=== PATIENT | female | born 1955 | race Caucasian/White ===

== ENCOUNTER → 2016-06-06 | Outpatient (CLI) | payer MEDICAID ==
[~2016-06-06] MED LIST: ACET-62 PO; AMIT25TA9 PO; CEFD300C3 PO; CLOB15CR5 TOP; ELET40TA PO; FLUT9.9S NAS; LEVO175T9 PO; LISI10TA7 PO; LORA10TA62 PO; MELO-267 PO; METO25TA6 PO; OMEP40CA52 PO; ONDA4TAB10 PO; PRED20TA PO; SCOP1PAT TOP; TIZA4TAB4 PO
--- NOTE | 2016-06-06 15:50 | DI ---
Indication: ITS.REASON: M54.12 RADICULOPATHY; M54.2 MRI CERVICAL SPINE W/O CONTRAS: Comparison: Plain radiographs of the cervical spine 04/11/2016 Technique: T1 and T2-weighted images provided in longitudinal maxilla image planes. Findings: Patient showed no acute vertebral body fractures or significant malalignments. Degenerative changes are appreciated in the C5-6 and C6-7 disc spaces which are narrowed with mild to moderate hypertrophic changes. Mild degenerative changes seen at the C3-4 disc space. No focal cord lesions are noted. No abnormal signal within the vertebral bodies seen. Axial images C2-3 disc space showed no abnormality. C3-4 disc space shows mild disc space bulging and some associated hypertrophic bony arthropathy which is causing some neural foraminal narrowing on the right not seen on the left side. C4-5 disc space showed no significant abnormality. C5-6 shows just mild disc space bulging without significant spinal stenosis or neural foraminal narrowing. C6-7 shows just mild broad-based disc bulging without marked hypertrophic changes or significant stenosis. Impression: 1. Patient showed the most significant findings to the right neural foraminal recess at C3-4. No significant spinal stenosis noted but there is asymmetric neural foraminal narrowing. 2. Mild degenerative changes and broad-based disc bulging at C5-6 and C6-7 levels without significant spinal stenosis or neural foraminal narrowing. There is just slightly more effect on the canal diameter with effacement of epidural fat at C5-6. .
== END ==
LOC: IMA 13:44
PROVIDERS: ATTEND Physician Assistant
DX: M50.822 Other cervical disc disorders at C5-C6 level (principal); M50.823 Other cervical disc disorders at C6-C7 level; M54.12 Radiculopathy, cervical region

== ENCOUNTER 2016-07-06 21:57 | Emergency (ER) | payer MEDICAID ==
[~2016-07-06] VITALS: Ht 166.4 cm; Wt 99.3 kg
--- OUTSIDE RECORDS SUMMARY | 2016-07-06 22:01 | XMS REPORT | Continuity of Care Document ---
Author Author [facility] Organization [facility] Address Unknown Phone Unavailable Care Team Providers [employer] Analyst Name Role Phone RUEL PEREZ MD Primary Care Physician [phone] Insurance Providers Payer Name Policy Number Subscriber Name Relationship [facility] [id number] Stephanie Molina 20 Self Advance Directives Directive Response Recorded Date/Time Ordered Resuscitation Status Full Code 12/23/13 12:17pm Resuscitation Documents on File No 12/23/13 11:54am Chief Complaint and Reason for Visit Chief Complaint Abdominal Pain Reason for Visit Abdominal abscess Abdominal pain Problems Medical Problems Problem Onset Date Status Abdominal pain Unknown Active Abdominal fluid collection Unknown Active Wound dehiscence Unknown Active Hypothyroid Unknown Active History of Clostridium difficile colitis Unknown Active History of MRSA infection Unknown Resolved Anemia Unknown Active Seroma, postoperative Unknown Active 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 Hepatitis C carrier Unknown Active Dehydration Unknown Active Abdominal pain Unknown Active Hypertension Unknown Active Protein calorie malnutrition Unknown Active Obesity (BMI 30-39.9) Unknown Active Dyslipidemia Unknown Active GERD (gastroesophageal reflux disease) Unknown Active Stage III chronic kidney disease Unknown Active Depression Unknown Active Overactive bladder Unknown Active Allergic rhinitis Unknown Active Abdominal abscess Unknown Active Medications Medication Dose Route Sig Days/Qty Instructions Order Date Discontinued Date Status Celecoxib 200 Mg PO DAILY 10/29/09 07/24/11 Discontinued Cyclobenzaprine Hcl 10 Mg PO Q8HPRN 10/29/09 12/18/11 Discontinued Gabapentin 600 Mg PO THREE TIMES A DAY 10/29/09 07/24/11 Discontinued Hydrocodone Bit/Acetaminophen 1 Tab PO Q4HPRN 10/29/09 07/24/11 Discontinued Labetalol Hcl 100 Mg PO TWICE A DAY 10/29/09 12/27/11 Discontinued Levothyroxine Sodium 1 Tab PO DAILY 10/29/09 01/15/12 Discontinued Lisinopril 20 Mg PO DAILY 10/29/09 01/15/12 Discontinued Estrogens,Conjugated 0.625 Mg PO DAILY 10/29/09 12/18/11 Discontinued Albuterol Sulfate 2 Puff INH NEEDED 10/29/09 12/27/11 Discontinued Tramadol Hcl 50 Mg PO THREE TIMES A DAY 10/29/09 07/24/11 Discontinued Estrogens,Conjugated 0.625 Mg PO DAILY 5 DAYS ON 2 DAYS OFF 12/18/11 12/27/11 Discontinued [Normodyne] 100 Mg TWICE A DAY 12/27/11 02/03/12 Discontinued Nystatin 1 Each MC TWICE A DAY 12/29/11 01/15/12 Discontinued Ibuprofen 100 Mg PO NEEDED 12/29/11 01/15/12 Discontinued Acetaminophen 325-650 Mg PO EVERY 5 HOURS PRN DISCOMFORT 7 Days Active Levothyroxine Sodium 175 Mcg PO BEFORE BREAKFAST 30 Days 12/03/13 Active Metronidazole 500 Mg PO TWICE A DAY 60 Qty 12/17/13 Active Omeprazole 40 Mg PO DAILY 30 Qty 12/17/13 Active Loratadine DAILY 12/27/13 Active Social History Social History Problem Response Recorded Date/Time Smoking Status Never smoker 12/27/2013 1:40pm Chewing Tobacco Status No 02/03/2012 3:21pm Hx Substance Use N IN THE PAST - SMOKED [place] 12/27/2013 1:40pm Hx Alcohol Use No 12/27/2013 1:40pm Has the pt used tobacco in the last 12 months No 12/27/2013 1:40pm Query Response Start Date Stop Date Smoking Status Never smoker Hospital Discharge Instructions Instructions: Care Instructions: Reason for Hospitalization: ABDOMINAL ABSCESS I was in the hospital because (patient own words): my belly is popping out Discharge Diet: REGULAR Discharge Activity: Up as tolerated Follow Up Appointments: Follow up with Dr. Jenkins in wound clinic when dismissed from AM. Patient Instructions: n/a Wound/Incision Care: Wound Vac per [facility] Durable Medical Equipment: n/a Notify Physician If: Worsening abdominal pain, fevers General Information: n/a Condition at time of discharge: Good Good or excessive foul smelling drainage. 3. If the office is closed, call [facility] at [phone] and have your Surgeon paged. Condition at time of discharge: Good Plan of Care Discharge Date 12/03/13 2:35pm Disposition 02 TO [facility] Condition at Discharge Stable Instructions/Education Provided DI for Wound Infection DI with Wound Drains Prescriptions See Medications Section Referrals RUEL PEREZ MD Functional Status Query Response Date Recorded Physical Hygiene Self December 03, 2013 2:06pm Physical Hygiene Self December 03, 2013 2:06pm Allergies, Adverse Reactions, Alerts Allergen Type Severity Reaction Status Last Updated Penicillin Allergy Unknown Active 11/26/13 Aspirin Allergy Unknown Active 11/26/13 adhesive tape Allergy Mild RASH Active 11/26/13 Milk Allergy Unknown Active 11/26/13 Immunizations Name Given Type Hx Influenza Vaccination Y FALL 2012 Historical Hx Pneumococcal Vaccination 2009 Historical Hx Influenza Vaccination Y FALL 2012 Historical Vital Signs Acute Vital Signs Vital Response Date/Time Temperature (Fahrenheit) 97.4 deg F (96.8 - 99.1) Temperature (Calculated Celsius) 36.91482 degrees C (36.0 - 37.3) Temperature Source Temporal Pulse Rate (adult) 88 bpm (60 - 100) Respiratory Rate 17 breaths/min (10 - 20) O2 Sat by Pulse Oximetry 97 % (90 - 100) Oxygen Delivery Method Room Air Blood Pressure 137/96 mm Hg Blood Pressure Source Automatic Cuff Height 5 ft 5.5 in Weight 212 lb Body Mass Index 34.0 kg/m^2 Results Test Source Date Result Interp. Ref. Range Comments Activated Partial Thromboplast Time December 27, 2013 1:43pm 18.5 SEC L 24-36 Prothromb Time International Ratio December 27, 2013 1:43pm 0.95 N 0.81- 1.09 THERAPUTIC RANGE=2.00-3.00 FOR ANTI-THROMBOSIS THERAPUTIC RANGE=2.50- 3.50 FOR IMPLANTED VALVE Alanine Aminotransferase (ALT/SGPT) December 27, 2013 1:43pm 23 U/L N 9- 52 Albumin December 27, 2013 1:43pm 3.0 G/DL L 3.5-5.0 Albumin/Globulin Ratio December 27, 2013 1:43pm 0.8 RATIO L 1.1-2.2 Alkaline Phosphatase December 27, 2013 1:43pm 146 U/L H 38-126 Amylase Level November 26, 2013 4:12pm 44 U/L N 30-110 Anion Gap December 27, 2013 1:43pm 8 MEQ/L N 5-15 Anisocytosis November 29, 2013 4:49am 2+ - Aspartate Amino Transf (AST/SGOT) December 27, 2013 1:43pm 22 U/L N 14- 36 BUN/Creatinine Ratio December 27, 2013 1:43pm 8 RATIO N 6-26 Band Neutrophils # December 27, 2013 1:43pm 0.1 T/MM3 - COMMENT SCU WILL CALL Band Neutrophils % December 27, 2013 1:43pm 1.0 % N 0-6 COMMENT SCU WILL CALL Basophils # (Auto) December 03, 2013 4:59am 0.0 T/MM3 N 0-0.2 Basophils # (Manual) January 08, 2012 5:30am 0.1 T/MM3 N 0-0.2 Basophils % (Manual) January 08, 2012 5:30am 1.0 % N 0-2 Basophils (%) (Auto) December 03, 2013 4:59am 0.4 % N 0-2 Blood Smear Pathologist Review November 30, 2013 5:42am Sent for review - COMMENT Add on - blood already in lab Blood Urea Nitrogen December 27, 2013 1:43pm 7.0 MG/DL N 7-17 Calcium Level December 27, 2013 1:43pm 8.9 MG/DL N 8.4-10.2 Calculated Osmolality December 27, 2013 1:43pm 267 MOSM/KG N 261-280 Carbon Dioxide Level December 27, 2013 1:43pm 24 MEQ/L N 22-30 Chemistry Specimen Hemolysis December 27, 2013 1:43pm < 15 0-25 0-25: No Hemolysis.26-70: Slight Hemolysis - can falsely elevate K and Urine Protein. 71-285: Moderate Hemolysis - can falsely elevate K, Troponin I, CA 19-9, PTH, CSF GLucose, and Urine Protein, and can falsely decrease Phenytoin. 286-999: Gross Hemolysis - can falsely elevate K, Troponin I, CA 19-9, PTH, CSF Glucose, and Urine Protine, and can falsely decrease Phenytoin. Recommend specimen recollection. Chloride Level December 27, 2013 1:43pm 108 MEQ/L H 98-107 Clostridium difficile Toxin (PCR) November 08, 2009 12:03pm Negative - If Toxin A is clinically indicated, treat accordingly. Conjugated Bilirubin January 15, 2012 1:10am 0.00 MG/DL N 0.00-0.30 Creatinine December 27, 2013 1:43pm 0.9 MG/DL N 0.7-1.2 D-Dimer November 06, 2009 4:33am 765 NG/ML H 0-224 <224 NG/ML= PRESUMPTIVE NEGATIVE FOR PE OR DVT>224 NG/ML=ADDITIONAL EVALUATION FOR PE OR DVT RECOMMENDED Differential Total Cells Counted November 03, 2009 5:15am 100 % - Eosinophils # (Auto) December 03, 2013 4:59am 0.2 T/MM3 N 0-0.5 Eosinophils # (Manual) December 27, 2013 1:43pm 0.2 T/MM3 N 0-0.5 COMMENT SCU WILL CALL Eosinophils % (Manual) December 27, 2013 1:43pm 2.0 % N 0-4 COMMENT SCU WILL CALL Eosinophils (%) (Auto) December 03, 2013 4:59am 2.9 % N 0-4 Erythrocyte Sedimentation Rate November 29, 2013 3:50pm 55 MM/HR H 0- 20 Ferritin November 03, 2009 5:15am 233 NG/ML N 11-264 Folate November 26, 2013 4:15am 3.7 NG/ML N 2.76-20 NORMAL ADULT RANGE : 2.76->20 ng/mL Free Thyroxine November 27, 2013 4:15am 0.80 NG/DL N 0.78-2.19 COMMENT BLOOD IN LAB Free Triiodothyronine November 27, 2013 4:15am 2.55 PG/ML L 2.77-5.27 COMMENT BLOOD IN LAB Globulin December 27, 2013 1:43pm 3.7 G/DL H 2.4-3.6 Glomerular Filtration Rate Calc December 27, 2013 1:43pm 65 - Glucometer February 03, 2012 6:21pm 102 mg/dL N 65-110 Glucose Level December 27, 2013 1:43pm 103 MG/DL N 65-110 Hematocrit December 27, 2013 1:43pm 32.3 % L 36-46 COMMENT SCU WILL CALL Hemoglobin December 27, 2013 1:43pm 9.4 GM/DL L 12-16 COMMENT SCU WILL CALL Icterus Index December 27, 2013 1:43pm < 2 0-7 Immature Granulocyte # (Auto) December 03, 2013 4:59am 0.02 T/MM3 N 0.00-0.03 Immature Granulocyte % (Auto) December 03, 2013 4:59am 0.3 % N 0.0-0.5 Iron Level November 26, 2013 4:15am 28 UG/DL L 37-170 COMMENT On blood in labCOMMENT on blood in lab Lab Scanned Report November 28, 2013 12:36pm BLOOD BANK DOCUMENTATION [id number] - Lipase November 26, 2013 4:12pm 55 U/L N 23-300 Lymphocytes # (Auto) December 03, 2013 4:59am 3.0 T/MM3 N 1-4.8 Lymphocytes # (Manual) December 27, 2013 1:43pm 3.6 T/MM3 N 1-4.8 COMMENT SCU WILL CALL Lymphocytes % (Manual) December 27, 2013 1:43pm 45.0 % N 23-45 COMMENT SCU WILL CALL Lymphocytes (%) (Auto) December 03, 2013 4:59am 39.3 % N 23-45 Magnesium Level November 30, 2013 5:42am 2.0 MG/DL DN 1.6-2.3 Mean Corpuscular Hemoglobin December 27, 2013 1:43pm 25.3 UUG L 26-34 COMMENT SCU WILL CALL Mean Corpuscular Hemoglobin Concent December 27, 2013 1:43pm 29.1 GM/DL L 31-37 COMMENT SCU WILL CALL Mean Corpuscular Volume December 27, 2013 1:43pm 86.8 UM3 N 80-100 COMMENT SCU WILL CALL Mean Platelet Volume December 27, 2013 1:43pm 9.6 UM3 N 9.4-12.4 COMMENT SCU WILL CALL Metamyelocytes # January 06, 2012 4:30am 0.2 T/MM3 - Metamyelocytes % January 06, 2012 4:30am 2.0 % H 0-0 Monocytes # (Auto) December 03, 2013 4:59am 0.9 T/MM3 H 0-0.8 Monocytes # (Manual) December 27, 2013 1:43pm 0.2 T/MM3 N 0-0.8 COMMENT SCU WILL CALL Monocytes % (Manual) December 27, 2013 1:43pm 2.0 % N 0-9.0 COMMENT SCU WILL CALL Monocytes (%) (Auto) December 03, 2013 4:59am 12.2 % H 0-9.0 Myelocytes # January 08, 2012 5:30am 0.3 T/MM3 - Myelocytes % January 08, 2012 5:30am 2.0 % H 0-0 Neutrophils # (Auto) December 03, 2013 4:59am 3.4 T/MM3 N 1.8-7.7 Neutrophils # (Manual) December 27, 2013 1:43pm 4.1 T/MM3 N 1.8-7.7 COMMENT SCU WILL CALL Neutrophils % (Manual) December 27, 2013 1:43pm 50.0 % N 33-66 COMMENT SCU WILL CALL Neutrophils (%) (Auto) December 03, 2013 4:59am 44.9 % N 33-66 Percent Iron Saturation November 26, 2013 4:15am 15 % N 9-55 COMMENT On blood in labCOMMENT on blood in lab Phosphorus Level January 01, 2012 5:50am 2.5 MG/DL N 2.5-4.5 Platelet Count December 27, 2013 1:43pm 438 T/MM3 H 130-400 COMMENT SCU WILL CALL Potassium Level December 27, 2013 1:43pm 3.6 MEQ/L N 3.6-5 Prealbumin November 26, 2013 4:12pm 7.3 MG/DL L 17.6-36.0 COMMENT may use blood in lab Procalcitonin November 26, 2013 6:10pm < 0.05 NG/ML - PCT </=0.5 ng/ mL - sepsis not likely;PCT >0.5 and </=2 ng/mL - sepsis possible; PCT >2 ng/mL - sepsis likely; PCT >/=10 ng/mL - systemic inflammatory response - sepsis or septic shock highly indicated. RDW Standard Deviation December 27, 2013 1:43pm 62.2 FL H 36.9-50.2 COMMENT SCU WILL CALL Random Vancomycin Level January 24, 2012 1:55pm 23.30 UG/ML N 0-40 Reactive Lymphocytes # November 29, 2013 4:49am 0.6 T/MM3 H 0-0 Reactive Lymphocytes % November 29, 2013 4:49am 5.0 % H 0-0 Red Blood Count December 27, 2013 1:43pm 3.72 M/MM3 L 4.00-5.20 COMMENT SCU WILL CALL Sodium Level December 27, 2013 1:43pm 140 MEQ/L N 134-144 Thyroid Stimulating Hormone (TSH) November 26, 2013 4:12pm 15.80 MIU/L H 0.47-4.68 COMMENT may use blood in lab Total Bilirubin December 27, 2013 1:43pm 0.40 MG/DL N 0.20-1.30 Total Iron Binding Capacity November 26, 2013 4:15am 181 UG/DL L 261- 497 COMMENT On blood in labCOMMENT on blood in lab Total Protein December 27, 2013 1:43pm 6.7 G/DL N 6.3-8.2 Turbidity December 27, 2013 1:43pm < 20 0-20 Unconjugated Bilirubin January 15, 2012 1:10am 0.10 MG/DL N 0.00-1.10 Urine Bacteria November 26, 2013 8:43pm 2+ H - Has specimen been collected/obtained? Y Urine Bilirubin November 26, 2013 8:43pm Negative - Has specimen been collected/obtained? Y Urine Blood November 26, 2013 8:43pm 1+ H - Has specimen been collected/obtained? Y Urine Collection Type November 26, 2013 8:43pm Voided-not cc-midstr - Has specimen been collected/obtained? Y Urine Color November 26, 2013 8:43pm Yellow - Has specimen been collected/obtained? Y Urine Culture Indicated November 26, 2013 8:43pm Cult reflexed &setup - Has specimen been collected/obtained? Y Urine Glucose (UA) November 26, 2013 8:43pm Negative - Has specimen been collected/obtained? Y Urine Ketones November 26, 2013 8:43pm Negative - Has specimen been collected/obtained? Y Urine Leukocyte Esterase November 26, 2013 8:43pm Negative - Has specimen been collected/obtained? Y Urine Mucus July 25, 2011 11:15am Present - Has specimen been collected/obtained? Y Urine Nitrite November 26, 2013 8:43pm Positive H - Has specimen been collected/obtained? Y Urine Protein November 26, 2013 8:43pm Negative - Has specimen been collected/obtained? Y Urine RBC November 26, 2013 8:43pm 10-20 /HPF H - Has specimen been collected/obtained? Y Urine Specific [place] November 26, 2013 8:43pm 1.010 L - Has specimen been collected/obtained? Y Urine Squamous Epithelial Cells November 26, 2013 8:43pm 5-10 - Has specimen been collected/obtained? Y Urine Turbidity November 26, 2013 8:43pm Sl cloudy - Has specimen been collected/obtained? Y Urine Urobilinogen November 26, 2013 8:43pm 0.2 EU/DL - Has specimen been collected/obtained? Y Urine WBC November 26, 2013 8:43pm Trace /HPF - Has specimen been collected/obtained? Y Urine WBC Clumps July 25, 2011 11:15am Few - Has specimen been collected/obtained? Y Urine Yeast December 18, 2011 1:40pm Trace H - Has specimen been collected/obtained? Y Urine pH November 26, 2013 8:43pm 7.5 - Has specimen been collected/ obtained? Y Vancomycin Level Trough December 02, 2013 6:06am 25.65 UG/ML H 15-20 COMMENT PER VANCO PROTOCOL Vitamin B12 Level November 26, 2013 4:12pm 377 PG/ML N 239-931 COMMENT may use blood in lab White Blood Count December 27, 2013 1:43pm 8.1 T/MM3 N 4.5-11.0 COMMENT SCU WILL CALL Blood Culture Blood January 15, 2012 1:10am NO GROWTH AFTER 5 DAYS Gram Stain Drainage-Surgical Wound November 26, 2013 3:47pm Gram Stain Rectum December 18, 2011 12:50pm Gram Stain Sputum-Induced Sputum November 03, 2009 9:15am Gram Stain Abscess November 27, 2013 11:11am Urine Culture Urine, Voided-Not Cc-Midstream November 26, 2013 9:02pm Proteus Mirabilis Name: STEPHANIE MOLINA Unit #: [id number] : 1955 Sex: F Loc / Svc: MED DOS: 11/26/13 Signed Report #: [id number] DIAGNOSTIC IMAGING REPORT TYPE OF EXAM: CHEST POST PROCEDURE 1 VIEW Dictated By: GEOFF HOLBROOK MD INDICATION: ITS.REASON: post central line placement CHEST POST PROCEDURE 1 VIEW: Comparison: January 21, 2012 Findings: New right internal jugular central venous catheter in place with the tip projecting over the expected cavoatrial junction. No pneumothorax. The lungs are clear. No effusion. Heart size, pulmonary vascularity and mediastinal contours are normal. Old right fourth and fifth lateral rib fractures, new since 2011. Impression: New right central line as above. . Procedures Procedure Status Date Provider(s) MUSCULOSKELETAL SURGERY completed 11/26/13 MARISSA JENKINS MD, FACS, CWS ABDOMEN SURGERY PROCEDURE completed 11/26/13 MARISSA JENKINS MD, FACS, CWS INSERT NON-TUNNEL CV CATH completed 11/26/13 MARISSA JENKINS MD, FACS, CWS RADIOGRAPHIC PROCEDURE completed 11/26/13 MARISSA JENKINS MD, FACS, CWS Wound closure completed 12/27/13 MARISSA JENKINS MD, FACS, CWS Encounters Encounter Location Date/Time Registered [facility] 12/20/13 1:17pm Registered [facility] 12/17/13 8:35am Registered Clinic [facility] 12/15/13 1:42pm Registered [facility] 12/13/13 9:30am Discharged Inpatient [facility] 11/26/13 5:45pm
--- OUTSIDE RECORDS SUMMARY | 2016-07-06 22:01 | XMS REPORT | Continuity of Care Document ---
Author Author [facility] Organization [facility] Address Unknown Phone Unavailable Allergies Medications Problems Procedures Results Encounters ACCT No. Visit Date/Time Discharge Status Pt. Type Provider Facility Loc./Unit Complaint [id number] 01/18/2013 15:11:00 01/18/2013 23 :59:59 CLS Outpatient
--- OUTSIDE RECORDS SUMMARY | 2016-07-06 22:02 | XMS REPORT | Referral Summary ---
Author Author [facility], [facility] Medicine Organization [facility] Address Unknown Phone Unavailable Care Team Providers Care Scorekeeper Name Role Phone Kris Ramos Primary Care Physician [phone] Encounter VC Date(s): 01/31/16 - 01/31/16 [facility] [address] [place] [id number] Discharge Diagnosis: hx of rectocele, cystocele Discharge Diagnosis: Morbid obesity (disorder) Discharge Diagnosis: H/O: substance abuse Discharge Diagnosis: CHRONIC HEPATITIS C WITHOUT MENTION OF HEPATIC COMA Discharge Diagnosis: Cervical cancer Discharge Diagnosis: History of kidney stones Discharge Diagnosis: Gastroesophageal reflux disease (disorder) Discharge Diagnosis: Hx of migraine headaches Discharge Disposition: 01-Home or Self Care Attending Physician: Oh Ramos MD Admitting Physician: Oh Ramos MD Vital Signs Most recent to 1 oldest [Reference Range]: Temperature Tympanic 35.8 degC [36.6-38.1 degC] *LOW* (01/31/16 10:56 AM) Peripheral Pulse 77 bpm Rate [60-100 bpm] (01/31/16 10:56 AM) Respiratory Rate 16 br/min [14-20 br/min] (01/31/16 10:56 AM) Blood Pressure 150/80 mmHg [90-140/60-90 mmHg] *HI* (01/31/16 10:56 AM) SpO2 96 % (01/31/16 10:56 AM) Problem List Condition Effective Dates Status Health Status Informant Abdominal Active pain(Confirmed) Acute Active pain(Confirmed) Allergies(Confirmed) Active Anemia Active (disorder)(Confirmed ) Asthma(Confirmed) Active Asthma without Active status asthmaticus (disorder)(Confirmed ) At risk for Active infection(Confirmed) 1 At risk of pressure Active sore(Confirmed) bacteremia, sepsis 2005 Active from infected port a cath(Confirmed)2 Bladder muscle Active dysfunction - overactive (disorder)(Confirmed ) Bronchitis Active (disorder)(Confirmed ) Carpal tunnel Active syndrome (disorder)(Confirmed ) Cervical spondylosis Active without myelopathy (disorder)(Confirmed ) Chronic kidney Active disease stage 3 (disorder)(Confirmed ) COPD(Confirmed) Active Chronic kidney Active disease stage III(Confirmed) Chronic sinusitis Active (disorder)(Confirmed ) CHRONIC HEPATITIS C Active WITHOUT MENTION OF HEPATIC COMA(Confirmed) Chronic Active UTI(Confirmed)3 Constipation Active (disorder)(Confirmed ) Degeneration of Active cervical intervertebral disc (disorder)(Confirmed ) Generalized Active osteoarthritis (disorder)(Confirmed ) Depression(Confirmed Active ) Diarrhea Active (finding)(Confirmed) Necrotic SQ tissues Active in fascia (abd wound)(Confirmed) Skin Active Conditions(Confirmed ) Angina(Confirmed) Active Displacement of Active cervical intervertebral disc without myelopathy (disorder)(Confirmed ) Substance Active dependence(Confirmed )4 Dysphagia Active (disorder)(Confirmed ) Eczema(Confirmed) Active Essential Active hypertension (disorder)(Confirmed ) hx of rectocele, Active cystocele(Confirmed) Female urinary Active stress incontinence (finding)(Confirmed) Fibromyalgia(Confirm Active ed) Fluid volume Active deficit(Confirmed)5 Gastroesophageal Active reflux disease (disorder)(Confirmed ) Goiter Active (disorder)(Confirmed ) Headache Active (finding)(Confirmed) Headache - Active Migraine(Confirmed)6 Hemorrhage of rectum Active and anus (disorder)(Confirmed ) Herpes simplex virus 2009 Active (HSV-1)(Confirmed) Herpes simplex Active without complication (disorder)(Confirmed ) History of kidney Active stones(Confirmed) H/O: substance Active abuse(Confirmed) High Active Cholesterol(Confirme d)7 Hyperlipidemia(Confi Active rmed) Hypertension(Confirm Active ed) Hypokalemia (present 2011 Active on hosp admission)(Confirmed ) Hypothyroidism Active (disorder)(Confirmed ) Impaired skin Active integrity(Confirmed) 8 Hernia, Active incisional(Confirmed ) Incontinence - Active stress(Confirmed)9 Incontinence - Active urge(Confirmed)10 Hepatitis/Jaundice(C 2002 Active onfirmed)11 Injury of head Active (disorder)(Confirmed ) Insomnia Active (disorder)(Confirmed ) Irregular heart Active rhythm(Confirmed) Irritable bowel Active syndrome (disorder)(Confirmed ) Cervical 2001 Active cancer(Confirmed) Morbid obesity Active (disorder)(Confirmed ) Nausea vomiting and Active diarrhea(Confirmed) Neck pain Active (finding)(Confirmed) Osteoarthritis(Confi Active rmed) Overweight Active (finding)(Confirmed) Peptic ulcer without Active hemorrhage, without perforation AND without obstruction (disorder)(Confirmed ) Pneumonia Active (disorder)(Confirmed ) Pure Active hypercholesterolemia (disorder)(Confirmed ) Rectal prolapse Active (disorder)(Confirmed ) Rheumatic fever Active without heart involvement (disorder)(Confirmed ) Seizures(Confirmed)1 Active 2 Seizure Active disorder(Confirmed) Sexually Transmitted 2008 Active Disease(Confirmed)13 Sinus Active Infections(Confirmed )14 Sleep apnea Active (disorder)(Confirmed ) Tension-type Active headache (disorder)(Confirmed ) Ulcers(Confirmed)15 Active Urge incontinence of Active urine (finding)(Confirmed) Urinary tract Active infectious disease (disorder)(Confirmed ) Chicken Active Pox(Confirmed)16 Varicella Active zoster(Confirmed) Viral hepatitis C Active (disorder)(Confirmed ) 1Problem added automatically by system based on initiation of At Risk for Infection in Nutrition Plan of Care 2MILD B/L CTS. 3UTI w/ MRSA 12.24.2011. See Next[employer]. 4quit drug use 2000. 5Problem added automatically by system based on initiation of Fluid Deficit Plan of Care 6OTHR FORMS MIGRAINE W/O INTRACTABLE MIGRAINE W/O ME 7PURE HYPERCHOLESTEROLEMIA 8Problem added automatically by system based on initiation of Impaired Skin Integrity Plan of Care 9hx of mixed urinary incontinence. STRESS INCONTINENCE FEMALE. 10hx of mixed urinary incontinence. URGE INCONTINENCE. 11hep C 12OTHER CONVULSIONS. 13herpes 14UNSPECIFIED SINUSITIS (CHRONIC) 15peptic ulcer disease 16VARICELLA W/O COMPLICATION Allergies, Adverse Reactions, Alerts Substance Reaction Severity Status Adhesive Bandage1 Active aspirin Active Bactrim Active penicillin Active 1fabric elastric/adheisives Medications amitriptyline 25 mg oral tablet mg tabs, Oral, Bedtime (once a day), 1 tablet @ bedtime, 0 Refill(s) Start Date: 01/31/16 Status: Ordered fluticasone 50 mcg/inh nasal spray 1 sprays, Nasal, BID, 0 Refill(s) Start Date: 01/31/16 Status: Ordered lisinopril 10 mg oral tablet mg tabs, Oral, Daily, 0 Refill(s) Start Date: 01/31/16 Status: Ordered Mucinex 600 mg, Oral, q12hr, ER 12 hrs, 0 Refill(s) Start Date: 01/31/16 Status: Ordered [place] 5 mg-325 mg oral tablet 1 tabs, Oral, q4hr, as needed for pain, # 24 tabs, 0 Refill(s) Start Date: 12/17/13 Status: Ordered ondansetron 4 mg oral tablet, disintegrating 4 mg 1 tabs, Oral, q6hr, Nausea or Vomiting | as needed for nausea/vomiting, # 10 tabs, 0 Refill(s) Start Date: 01/31/16 Status: Ordered PriLOSEC 40 mg oral delayed release capsule 1 caps, Oral, Daily, # 30 caps, 0 Refill(s) Start Date: 12/17/13 Status: Ordered ProAir HFA 90 mcg/inh inhalation aerosol puffs, Inhalation, QID, 1-2 puffs every 4-6 hours, 0 Refill(s) Start Date: 01/31/16 Status: Ordered Relpax 40 mg oral tablet 40 mg 1 tabs, Oral, Daily, as needed for migraine headache, may repeat dose once in 2 hours, # 6 tabs, 0 Refill(s) Start Date: 01/31/16 Status: Ordered Synthroid 150 mcg (0.15 mg) oral tablet 1 tabs, Oral, Daily, TAKE IN ADDITION TO SYNTHROID 25MCG TO TOTAL 175MCG/DAY, # 30 tabs, 0 Refill(s) Start Date: 12/17/13 Status: Ordered Synthroid 25 mcg (0.025 mg) oral tablet 1 tabs, Oral, Daily, IN ADDITION TO SYNTHROID 150MCG TO TOTAL 175MG/DAY, # 30 tabs, 0 Refill(s) Start Date: 12/17/13 Status: Ordered tiZANidine 4 mg oral tablet mg tabs, Oral, q8hr, PRN once every 6 hrs, 0 Refill(s) Start Date: 01/31/16 Status: Ordered Transderm-Scop 1.5 mg transdermal film, extended release 1.5 mg 1 patches, Topical, q72hr, as needed for motion sickness, # 4 Each, 0 Refill(s) Start Date: 01/31/16 Status: Ordered Tylenol Regular Strength 325 mg, Oral, q4hr, 0 Refill(s) Start Date: 01/31/16 Status: Ordered Zaditor 0.025% ophthalmic solution 1 drops, Eye-Both, q12hr, # 7.5 mL, 0 Refill(s) Start Date: 01/31/16 Status: Ordered Results No data available for this section Immunizations Vaccine Date Refusal Reason tetanus/diphth/pertuss (Tdap) adult/adol 02/16/07 hepatitis A-hepatitis B vaccine 08/26/02 hepatitis B adult vaccine 02/22/02 influenza virus vaccine, live 01/18/13 influenza virus vaccine, live 12/25/09 pneumococcal 23-polyvalent vaccine 01/18/13 pneumococcal 23-polyvalent vaccine 01/27/04 Procedures Procedure Date Related Diagnosis Body Site EXP LAP; REDO RECTOPEXY WITH SIGMOID 09/02/13 RESECTION; VENTRAL HERNIA REPAIR WITH MESH; BILATERAL ABD WALL COMPONENT SEPARATION (93273; 35765-36; 72014; 44358-97,59) (90); RECURRENT RECTAL PROLAPSE - 569.1; INCISONAL HERNIA - 553.21 Repair Hernia Ventral1 09/02/13 Repair Rectal Prolapse2 09/02/13 Repair Rectal Prolapse3 09/02/13 Resection Sigmoid Colon4 09/02/13 C viral RNA test negative 07/23/13 CERVICAL TRANSLAMINAR 12/22/12 Surgical debridement 02/03/12 Removal5 01/08/12 Rectoplexy 12/30/11 hospitaization 12/25/11 Colonoscopy 12/23/11 EGD 12/23/11 Cervical Translaminar 01/21/11 Cervical translaminar 01/02/11 Pap smear6 11/16/08 cystocele rectocele repair,7 2008 port a cath removed due to infection 2005 Occult Blood 06/13/03 Mammogram screening 03/04/03 colonoscopy 2001 Hysterectomy CHANO-BSO for cervical cancer 2001 port a cath 2001 Adenoidectomy Appendectomy c-scope, normal, repeat 10 years Cervix8 Colonoscopy D and C open laparotomy with rectopexy Tonsillectomy Tooth extraction, multiple 1auto-populated from documented surgical case 2auto-populated from documented surgical case 3auto-populated from documented surgical case 4auto-populated from documented surgical case 5by Dr Garza. Double J stent (in place for 2 years). 6See NextGen. 7Dr. Ricci 8SURGERY FOR CERVICAL CA Social History Social History Type Response Smoking Status Former smoker Assessment and Plan Extracted from: Title: New Patient Visit Author: Oh Ramos MD Date: 01/31/16 Impression and Plan Diagnosis Gastroesophageal reflux disease (disorder) (SUQ16-YP K21.9, Discharge, Medical). Cervical cancer (DJD33-YW C53.9, Discharge, Medical). Morbid obesity (disorder) (ZXQ35-JP E66.01, Discharge, Medical). Hx of migraine headaches (EKG65-PJ Z86.69, Discharge, Medical). History of kidney stones (RND48-HQ Z87.442, Discharge, Medical). Hx of rectocele, cystocele (BNP75-HA N81.6, Discharge, Medical)."
--- OUTSIDE RECORDS SUMMARY | 2016-07-06 22:03 | XMS REPORT | Continuity of Care Document ---
Author Author [facility] Organization [facility] Address Unknown Phone Unavailable Care Team Providers Care Sanding Machine Operator Or Tender Name Role Phone RUEL PEREZ MD Primary Care Physician [phone] Insurance Providers Guarantor Stephanie Molina Address [address] [place] [address] Email DENIED 04-25-16 Payer [employer] [facility] [employer] Plan Policy Number [id number] Subscriber's Name Stephanie Molina Relationship 18 Self Effective Date 16 Expiration Date 16 Chief Complaint and Reason for Visit Chief Complaint Headache Reason for Visit Headache Sinusitis Bronchitis Dehydration Problems Active Problems Medical Problem Onset Date Status Abdominal abscess Unknown Acute Abdominal fluid collection Unknown Acute Abdominal pain Unknown Acute Abdominal pain Unknown Acute Acute kidney injury Unknown Acute Allergic rhinitis Unknown Chronic Anemia Unknown Chronic Bronchitis Unknown Acute Cholelithiasis Unknown Acute Chronic abdominal wound infection Unknown Chronic Dehydration Unknown Acute Depression Unknown Chronic Dyslipidemia Unknown Chronic GERD (gastroesophageal reflux disease) Unknown Chronic Gallbladder hydrops Unknown Acute Headache Unknown Acute Hepatitis C carrier Unknown Chronic History of Clostridium difficile colitis Unknown Chronic History of MRSA infection Unknown Resolved 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 Hydronephrosis of right kidney Unknown Acute Hydroureter on right Unknown Acute Hypertension Unknown Chronic Hypothyroid Unknown Chronic Intractable vomiting Unknown Acute Marijuana use Unknown Chronic Muscle spasm Unknown Acute No appetite Unknown Acute Obesity (BMI 30-39.9) Unknown Chronic Open abdominal wall wound Unknown Acute Overactive bladder Unknown Chronic Protein calorie malnutrition Unknown Chronic Seroma, postoperative Unknown Chronic Sinusitis Unknown Acute Stage III chronic kidney disease Unknown Chronic Wound dehiscence Unknown Acute Past Problems Medical Problem Onset Date Chronic nausea Unknown Sinusitis Unknown Medications Current Home Medications Medication Dose Units Route Directions Days Qty Instructions Start Date Acetaminophen 500 Mg Tablet 1,000 Mg Oral Every 8 Hours as needed for Pain 02/16/16 Amitriptyline Hcl 25 Mg Tablet 25 Mg Oral Bedtime 02/16/16 Cefdinir 300 Mg Capsule 300 Mg Oral Twice A Day 10 Days 04/22/16 Clobetasol Propionate/Emoll (Clobetasol Emollient 0.05% Crm) 15 Gm Cream..g. 1 Applic Topically As Needed 04/25/16 Eletriptan Hbr (Relpax) 40 Mg Tablet 40 Mg Oral Twice A Day as needed for Migraine Headache 02/16/16 Fluticasone Propionate (Flonase Allergy Relief 50 Mcg/Actuation Nasal) 9.9 Ml [place].susp 1 [place] Intranasal Daily as needed for Prn Orders 04/25 Levothyroxine Sodium 175 Mcg Tablet 175 Mcg Oral Daily 12/09/14 Lisinopril 10 Mg Tablet 10 Mg Oral Daily 11/08/14 Loratadine (Claritin) 10 Mg Tablet 10 Mg Oral Daily 12/27/13 Meloxicam 15 Mg Tablet 15 Mg Oral Daily 04/22/16 Metoprolol Tartrate 25 Mg Tablet 25 Mg Oral Twice A Day 04/22/16 Omeprazole 40 Mg Capsule.dr 40 Mg Oral Daily 12/17/13 Ondansetron (Ondansetron Odt) 4 Mg Tab.rapdis 4 Mg Oral Three Times A Day as needed for Nausea &/Or Vomiting 02/16/16 Prednisone 20 Mg Tablet 60 Mg Oral Give With Breakfast 4 Days 12 Tablet Take 3 (20 mg) tablets, by mouth, once a day with breakfast. 04/25/16 Scopolamine (Transderm-Scop) 1 Each Patch.td72 1 Patch Topically Every 3 Days 11/08/14 Tizanidine Hcl 4 Mg Tablet 4 Mg Oral Bedtime 04/25/16 Past Home Medications Medication Directions Ordered Status Albuterol Sulfate (Proair Hfa) 8.5 Gm Aerosol, 2 Puff Inhalation As Needed Discontinued Celecoxib (Celebrex) 200 Mg Capsule, 200 Mg Oral Daily 10/29/09 Discontinued Cyclobenzaprine Hcl 5 Mg Tablet, 1 Tab Oral Twice A Day 12/12/14 Discontinued Cyclobenzaprine Hcl 10 Mg Tablet, 10 Mg Oral Every 8 Hours Prn 10/29/09 Discontinued Estrogens,Conjugated (Premarin) 0.625 Mg Tablet, 0.625 Mg Oral Daily Discontinued Estrogens,Conjugated (Premarin) 0.625 Mg Tablet, 0.625 Mg Oral Daily Discontinued Gabapentin 600 Mg Tablet, 600 Mg Oral Three Times A Day 10/29/09 Discontinued Hydrocodone Bit/Acetaminophen (Hydrocodone-Apap 5-325 Mg Tab) 1 Tab Tablet, 1 Tab Oral Every 4 Hours Prn 10/29/09 Discontinued Ibuprofen (Motrin) 100 Mg Tablet, 100 Mg Oral As Needed 12/29/11 Discontinued Labetalol Hcl 100 Mg Tablet, 100 Mg Oral Twice A Day 10/29/09 Discontinued Levofloxacin 750 Mg Tablet, 750 Mg Oral Before Breakfast 01/01/15 Discontinued Levothyroxine Sodium (Levothroid) 175 Mcg Tablet, 1 Tab Oral Daily 10/29/09 Discontinued Lisinopril 20 Mg Tablet, 20 Mg Oral Daily 10/29/09 Discontinued Methocarbamol 750 Mg Tablet, 1 Tab Oral Bedtime 11/08/14 Discontinued Metronidazole 500 Mg Tablet, 1 Tab Oral Four Times Daily 01/02/15 Discontinued Metronidazole 500 Mg Tablet, 500 Mg Oral Twice A Day 12/17/13 Discontinued Normodyne , 100 Mg Twice A Day 12/27/11 Discontinued Nystatin 1 Each Powder.ea., 1 Each Miscell Twice A Day 12/29/11 Discontinued Tramadol Hcl 50 Mg Tablet, 50 Mg Oral Three Times A Day 10/29/09 Discontinued Social History Social History Problem Response Recorded Date/Time Onset Date Status Chewing Tobacco Status No 02/03/2012 3:21pm Not Applicable Not Applicable Hx Substance Use N IN THE PAST - SMOKED [place]IJ[place] 04/25/2016 6:36pm Not Applicable Not Applicable Hx Alcohol Use No 04/25/2016 6:36pm Not Applicable Not Applicable Has the pt used tobacco in the last 12 months Yes 01/01/2015 3:40pm Not Applicable Not Applicable Tobacco Usage none 01/04/2015 6:23pm Not Applicable Not Applicable Query Response Start Date Stop Date Smoking Status Never smoker Hospital Discharge Instructions No hospital discharge instructions. Plan of Care Discharge Date 04/25/16 8:20pm Disposition 01 DISCHARGED HOME, SELF-CARE Condition at Discharge Stable Instructions/Education Provided Sinusitis (ED) Acute Bronchitis (ED) Prescriptions See Medication Section Referrals PIPPA FOWLER DO Address: [address] [place] [phone] Note: Follow-up next week if not improving Additional Instructions/Education Continue antibiotics prescribed earlier this week. Take steroids for 4 more additional days as prescribed. Take with food. Functional Status No functional status results. Allergies, Adverse Reactions, Alerts Allergen Type Severity Reaction Status Last Updated Penicillin Allergy Unknown NAUSEA Active 04/25/16 Aspirin Allergy Unknown Active 04/25/16 adhesive tape Allergy Mild RASH Active 04/25/16 Milk Allergy Unknown Active 04/25/16 Immunizations Query Response on File Recorded Date/Time Hx Influenza Vaccination Y fall 201301/01/15 3:40pm Hx Pneumococcal Vaccination 200901/01/15 3:40pm Hx Influenza Vaccination Y fall 201301/01/15 3:40pm Influenza Vaccine Hx 12/201504/25/16 6:36pm Vital Signs Acute Vital Signs Vital Response Date/Time Temperature (Fahrenheit) 98.4 deg F (96.8 - 99.1) 04/25/2016 8:20pm Temperature (Calculated Celsius) 36.81947 degrees C (36.0 - 37.3) 04/25/2016 8:20pm Pulse Rate (adult) 71 bpm (60 - 100) 04/25/2016 8:20pm Respiratory Rate 28 breaths/min (10 - 20) 04/25/2016 8:20pm O2 Sat by Pulse Oximetry 96 % (90 - 100) 04/25/2016 8:20pm Blood Pressure 171/95 mm Hg 04/25/2016 8:20pm Height (Feet) 5 feet 04/25/2016 5:33pm Height (Inches) 5.50 inches 04/25/2016 5:33pm Weight (Kilograms) 96.900 kg 04/25/2016 5:33pm Body Mass Index (BMI) 35.0 04/25/2016 5:33pm Results Laboratory Results Test Name Result Units Flags Reference Collection Date/Time Result Date/ Time Comments White Blood Count 3.8 T/MM3 L 4.5-11.0 04/25/2016 6:36pm 04/25/2016 6: 45pm Red Blood Count 4.01 M/MM3 4.00-5.20 04/25/2016 6:36pm 04/25/2016 6: 45pm Hemoglobin 12.7 GM/DL 12-16 04/25/2016 6:36pm 04/25/2016 6:45pm Hematocrit 39.7 % 36-46 04/25/2016 6:36pm 04/25/2016 6:45pm Mean Corpuscular Volume 99.0 UM3 80-100 04/25/2016 6:36pm 04/25/2016 6: 45pm Mean Corpuscular Hemoglobin 31.7 UUG 26-34 04/25/2016 6:36pm 2016 6:45pm Mean Corpuscular Hemoglobin Concent 32.0 GM/DL 31-37 04/25/2016 6:36pm 04/25/2016 6:45pm RDW Standard Deviation 47.9 FL 36.9-50.2 04/25/2016 6:36pm 04/25/2016 6 :45pm Platelet Count 194 T/MM3 130-400 04/25/2016 6:36pm 04/25/2016 6:45pm Mean Platelet Volume 10.2 UM3 9.4-12.4 04/25/2016 6:36pm 04/25/2016 6: 45pm Neutrophils % (Manual) 34.0 % 33-66 04/25/2016 6:36pm 04/25/2016 7: 10pm Lymphocytes % (Manual) 58.0 % H 23-45 04/25/2016 6:36pm 04/25/2016 7: 10pm Monocytes % (Manual) 7.0 % 0-9.0 04/25/2016 6:36pm 04/25/2016 7:10pm Reactive Lymphocytes % 1.0 % H 0-0 04/25/2016 6:36pm 04/25/2016 7:10pm Absolute Neutrophils (Manual) 1.3 T/MM3 L 1.8-7.7 04/25/2016 6:36pm 04/2016 7:10pm Lymphocytes # (Manual) 2.2 T/MM3 1-4.8 04/25/2016 6:36pm 04/25/2016 7: 10pm Monocytes # (Manual) 0.3 T/MM3 0-0.8 04/25/2016 6:36pm 04/25/2016 7: 10pm Reactive Lymphocytes # 0.0 T/MM3 0-0 04/25/2016 6:36pm 04/25/2016 7: 10pm Red Cell Morphology Comment NORMAL 04/25/2016 6:36pm 04/25/2016 7: 10pm Icterus Index < 2 0-7 04/25/2016 6:36pm 04/25/2016 6:55pm Chemistry Specimen Hemolysis 35 H 0-25 04/25/2016 6:36pm 04/25/2016 6: 55pm 26-70: Specimen Exhibited Slight Hemolysis - can falsely elevate K (Potassium) and Urine Protein. Turbidity < 20 0-20 04/25/2016 6:36pm 04/25/2016 6:55pm Sodium Level 142 MEQ/L 134-144 04/25/2016 6:36pm 04/25/2016 6:55pm Potassium Level 3.8 MEQ/L 3.6-5 04/25/2016 6:36pm 04/25/2016 6:55pm Chloride Level 109 MEQ/L H 98-107 04/25/2016 6:36pm 04/25/2016 6:55pm Carbon Dioxide Level 21 MEQ/L L 22-30 04/25/2016 6:36pm 04/25/2016 6: 55pm Anion Gap 12 MEQ/L 5-15 04/25/2016 6:36pm 04/25/2016 6:55pm Blood Urea Nitrogen 14.0 MG/DL 7-17 04/25/2016 6:36pm 04/25/2016 6: 55pm Creatinine 1.3 MG/DL H 0.7-1.2 04/25/2016 6:36pm 04/25/2016 6:55pm BUN/Creatinine Ratio 11 RATIO 6-26 04/25/2016 6:36pm 04/25/2016 6:55pm Glomerular Filtration Rate Calc 42 04/25/2016 6:36pm 04/25/2016 6: 55pm Glucose Level 109 MG/DL 65-110 04/25/2016 6:36pm 04/25/2016 6:55pm Calculated Osmolality 275 MOSM/KG 261-280 04/25/2016 6:36pm 04/25/2016 6:55pm Calcium Level 8.8 MG/DL 8.4-10.2 04/25/2016 6:36pm 04/25/2016 6:55pm Procedures Procedure Status Date Provider(s) Ther/proph/diag inj sc/im Completed 02/16/16 Emergency dept visit Completed 02/16/16 [id number]"INJECTION, PROMETHAZINE HCL, UP TO 50 MG" Completed 02/16/16 X-ray exam neck spine 4/5vws Completed 04/11/16 Routine venipuncture Completed 04/21/16 Chest x-ray 1 view frontal Completed 04/21/16 Metabolic panel total ca Completed 04/21/16 Complete cbc automated Completed 04/21/16 Electrocardiogram tracing Completed 04/21/16 Ther/proph/diag inj sc/im Completed 04/21/16 Ther/proph/diag inj sc/im Completed 04/21/16 Emergency dept visit Completed 04/21/16 [id number]"INJECTION, CEFTRIAXONE SODIUM, PER 250 MG" Completed 04/21/16 [id number]"INJECTION, DIPHENHYDRAMINE HCL, UP TO 50 MG" Completed 04/21/16 Encounters Encounter Location Arrival/Admit Date Discharge/Depart Date Attending Provider Departed Emergency Room [facility] 04/25/16 5:31pm 04/25/16 8: 20pm EKATERINA RICK DO Departed Emergency Room [facility] 04/21/16 11:28pm 04/22/16 1: 35am EKATERINA RICK DO Registered Clinic [facility] 04/11/16 4:03pm ENID OROZCO Departed Emergency Room [facility] 02/16/16 12:10pm 02/16/16 1: 51pm TITUS LE MD Recent Diagnosis
--- OUTSIDE RECORDS SUMMARY | 2016-07-06 22:03 | XMS REPORT | Continuity of Care Document ---
Author Author [facility] Organization [facility] Address Unknown Phone Unavailable Care Team Providers Care Saw Superintendent Name Role Phone RUEL PEREZ MD Primary Care Physician [phone] Insurance Providers Payer Name Policy Number Subscriber Name Relationship [facility] [id number] Stephanie Molina 20 Self Advance Directives Directive Response Recorded Date/Time Ordered Resuscitation Status Full Code 11/26/13 7:58pm Resuscitation Documents on File No 11/26/13 6:58pm Chief Complaint and Reason for Visit Chief Complaint ABDOMINAL PAIN/ABDOMINAL ABCESS Reason for Visit Abdominal pain Abdominal fluid collection Wound dehiscence Hypothyroid History of Clostridium difficile colitis History of MRSA infection Anemia Seroma, postoperative History of intravenous drug use in remission Hepatitis C carrier Dehydration Abdominal pain Hypertension Protein calorie malnutrition Obesity (BMI 30-39.9) Dyslipidemia GERD (gastroesophageal reflux disease) Stage III chronic kidney disease Depression Overactive bladder Allergic rhinitis Abdominal abscess Problems Medical Problems Problem Onset Date Status [...] 100 Mg PO NEEDED 12/29/11 01/15/12 Discontinued Scopolamine 1.5 Mg TD Q3D 7 Days 12/03/13 Active Scopolamine 1 Removal TD Q3D 7 Days 12/03/13 Active Acetaminophen 325-650 Mg PO EVERY 5 HOURS PRN DISCOMFORT 7 Days Active Bisacodyl 10 Mg RECTALLY DAILY PRN CONSTIPATION 7 Days 12/03/13 Active [Cod Liver Oil/Zinc Oxide] 1 Applic TOP TWICE A DAY 12/03/13 Active Diphenhydramine HCl 25 Mg PO Every 6 Hours PRN ITCHING 7 Days 12/03/13 Active Levothyroxine Sodium 175 Mcg PO BEFORE BREAKFAST 30 Days 12/03/13 Active Magnesium Hydroxide/Al Hydrox 30 Ml PO Every 3 Hours PRN INDIGESTION 7 Days 12/03/13 Active Morphine Sulfate 1-4 Mg IV Q1H PRN PAIN 7 Days 12/03/13 Active Nitroglycerin 0.4 Mg SL Q5M PRN CHEST PAIN 7 Days 12/03/13 Active Pantoprazole Sodium 40 Mg IV DAILY 7 Days 12/03/13 Active Polyethylene Glycol 3350 17 Gm PO DAILY PRN CONSTIPATION 7 Days Active Promethazine HCl 12.5 Mg IV Every 6 Hours PRN NAUSEA 7 Days 12/03/13 Active Ciprofloxacin Lactate 400 Mg IV TWICE A DAY 7 Days 12/03/13 Active Social History Social History Problem Response Recorded Date/Time Smoking Status Never smoker 11/26/2013 7:37pm Chewing Tobacco Status No 02/03/2012 3:21pm Hx Substance Use Y MORE THAN A MONTH AGO,MARIJUANA 11/26/2013 4:35pm Hx Alcohol Use No 11/26/2013 4:35pm Has the pt used tobacco in the last 12 months No 11/26/2013 7:37pm Query Response Start Date Stop Date Smoking Status Never smoker Hospital Discharge Instructions Instructions: Care Instructions: Reason for Hospitalization: ABDOMINAL ABSCESS I was in the hospital because (patient own words): my belly is popping out Discharge Diet: REGULAR Discharge Activity: Up as tolerated Follow Up Appointments: Follow up with Dr. Jenkins in wound clinic when dismissed from [facility]. Patient Instructions: n/a Wound/Incision Care: Wound Vac per [facility] Durable Medical Equipment: n/a Notify Physician If: Worsening abdominal pain, fevers General Information: n/a Condition at time of discharge: Good 2.Do not pick at it or scrub it while showering. 3.If the dressing begins to pull up, secure it with 4x4 gauze pad and tape. 4.You may shower; however, do not submerge yourself in water until the incision is completely healed. Mepilex 1.Dressing to remain in place until your follow up appointment. 2.If this dressing starts peeling up slightly, it may be reinforced, if it peels excessively, notify your surgeon's office. 3.You may shower with the dressing in place, but do not submerge in water 4.Do not allow water to seep under the dressing, if it should seep under, remove the dressing and notify your surgeon. Notify Physician If: Call your Surgeon if you have: 1.Chest pain, difficulty breathing, fever>100.5 degrees, chills, heart rate >100, confusion, or persistent nausea/vomitting. 2.Severe pain, swelling, redness, or warmth in either of your legs. 3.During office hours, call [phone] 4. After hours, please call [facility] at [phone], and have the ball fringe machine operator page your Surgeon IN THE EVENT OF AN EMERGENCY, seek medical care at the nearest Emergency Room Condition at time of discharge: Good Plan of Care Discharge Date 12/03/13 2:35pm Disposition 91 RESIDENTIAL/PAD-MZZ-OOSR READM Instructions/Education Provided DI for Wound Infection DI with Wound Drains Prescriptions See Medications Section Functional Status Query Response Date Recorded Physical Hygiene Self December 03, 2013 2:06pm Disabilities None December 03, 2013 2:06pm Devices Used Glasses None December 03, 2013 2:06pm Dressing Self December 03, 2013 2:06pm Ambulation Self December 03, 2013 2:06pm Diet Self December 03, 2013 2:06pm Mental Status Alert Oriented December 03, 2013 2:06pm Disabilities None December 03, 2013 2:06pm Devices Used Glasses None December 03, 2013 2:06pm Physical Hygiene Self December 03, 2013 2:06pm Dressing Self December 03, 2013 2:06pm Ambulation Self December 03, 2013 2:06pm Diet Self December 03, 2013 2:06pm Allergies, Adverse Reactions, Alerts Allergen Type Severity Reaction Status Last Updated Penicillin Allergy Unknown Active 11/26/13 Aspirin Allergy Unknown Active 11/26/13 adhesive tape Allergy Mild RASH Active 11/26/13 Milk Allergy Unknown Active 11/26/13 Immunizations Name Given Type Hx Influenza Vaccination Y 12/2011 Historical Hx Pneumococcal Vaccination Y 2009 Historical Hx Influenza Vaccination Y 12/2011 Historical Vital Signs Acute Vital Signs Vital Response Date/Time Temperature (Fahrenheit) 97.9 deg F (96.8 - 99.1) Temperature (Calculated Celsius) 36.61025 degrees C (36.0 - 37.3) Temperature Source Oral Pulse Rate (adult) 79 bpm (60 - 100) Respiratory Rate 18 breaths/min (10 - 20) O2 Sat by Pulse Oximetry 96 % (90 - 100) Oxygen Delivery Method Room Air Blood Pressure 112/57 mm Hg Blood Pressure Source Automatic Cuff Height 5 ft 5 in Weight 217 lb Body Mass Index 36.0 kg/m^2 Results Test Source Date Result Interp. Ref. Range Comments Alanine Aminotransferase (ALT/SGPT) November 30, 2013 5:42am 22 U/L N 9 -52 Albumin November 30, 2013 5:42am 1.9 G/DL L 3.5-5.0 Albumin/Globulin Ratio November 30, 2013 5:42am 0.7 RATIO L 1.1-2.2 Alkaline Phosphatase November 30, 2013 5:42am 130 U/L H 38-126 Amylase Level November 26, 2013 4:12pm 44 U/L N 30-110 Anion Gap December 03, 2013 4:59am 7 MEQ/L N 5-15 Anisocytosis November 29, 2013 4:49am 2+ - Aspartate Amino Transf (AST/SGOT) November 30, 2013 5:42am 12 U/L L 14- 36 BUN/Creatinine Ratio December 03, 2013 4:59am 6-26 Band Neutrophils # November 29, 2013 4:49am 0.6 T/MM3 - Band Neutrophils % November 29, 2013 4:49am 5.0 % N 0-6 Basophils # (Auto) December 03, 2013 4:59am [...] already in lab Blood Urea Nitrogen December 03, 2013 4:59am < 2.0 MG/DL L 7-17 Calcium Level December 03, 2013 4:59am 7.6 MG/DL L 8.4-10.2 Calculated Osmolality December 03, 2013 4:59am Test not performed 261 -280 Carbon Dioxide Level December 03, 2013 4:59am 24 MEQ/L N 22-30 Chemistry Specimen Hemolysis December 03, 2013 4:59am < 15 0-25 0-25 : No Hemolysis.26-70: Slight Hemolysis - can falsely [...] Phenytoin. Recommend specimen recollection. Chloride Level December 03, 2013 4:59am 108 MEQ/L H 98-107 Clostridium difficile Toxin (PCR) November 08, 2009 12:03pm Negative - If Toxin A is clinically indicated, treat accordingly. Conjugated Bilirubin January 15, 2012 1:10am 0.00 MG/DL N 0.00-0.30 Creatinine December 03, 2013 4:59am 1.2 MG/DL N 0.7-1.2 D-Dimer November 06, 2009 4:33am 765 NG/ML H 0-224 <224 NG/ML= PRESUMPTIVE NEGATIVE FOR PE OR DVT>224 NG/ML=ADDITIONAL EVALUATION FOR PE OR DVT RECOMMENDED Differential Total Cells Counted November 03, 2009 5:15am 100 % - Eosinophils # (Auto) December 03, 2013 4:59am 0.2 T/MM3 N 0-0.5 Eosinophils # (Manual) January 15, 2012 1:10am 0.3 T/MM3 N 0-0.5 Eosinophils % (Manual) January 15, 2012 1:10am 2.0 % N 0-4 Eosinophils (%) (Auto) December 03, 2013 4:59am [...] L 2.77-5.27 COMMENT BLOOD IN LAB Globulin November 30, 2013 5:42am 2.8 G/DL N 2.4-3.6 Glomerular Filtration Rate Calc December 03, 2013 4:59am 46 - Glucometer February 03, 2012 6:21pm 102 mg/dL N 65-110 Glucose Level December 03, 2013 4:59am 102 MG/DL N 65-110 Hematocrit December 03, 2013 4:59am 26.2 % L 36-46 Hemoglobin December 03, 2013 4:59am 7.8 GM/DL L 12-16 Icterus Index December 03, 2013 4:59am < 2 0-7 Immature Granulocyte # (Auto) December 03, 2013 4:59am 0.02 T/MM3 N 0.00-0.03 Immature Granulocyte % (Auto) December 03, 2013 4:59am 0.3 % N 0.0-0.5 Iron Level November 26, 2013 4:15am 28 UG/DL L 37-170 COMMENT On blood in labCOMMENT on blood in lab Lab Scanned Report November 28, 2013 12:36pm BLOOD BANK DOCUMENTATION - Lipase November 26, 2013 4:12pm 55 U/L N 23-300 Lymphocytes # (Auto) December 03, 2013 4:59am 3.0 T/MM3 N 1-4.8 Lymphocytes # (Manual) November 29, 2013 4:49am 1.8 T/MM3 N 1-4.8 Lymphocytes % (Manual) November 29, 2013 4:49am 14.0 % L 23-45 Lymphocytes (%) (Auto) December 03, 2013 4:59am 39.3 % N 23-45 Magnesium Level November 30, 2013 5:42am 2.0 MG/DL DN 1.6-2.3 Mean Corpuscular Hemoglobin December 03, 2013 4:59am 26.5 UUG N 26-34 Mean Corpuscular Hemoglobin Concent December 03, 2013 4:59am 29.8 GM/DL L 31-37 Mean Corpuscular Volume December 03, 2013 4:59am 89.1 UM3 N 80-100 Mean Platelet Volume December 03, 2013 4:59am 8.7 UM3 L 9.4-12.4 Metamyelocytes # January 06, 2012 4:30am 0.2 T/MM3 - Metamyelocytes % January 06, 2012 4:30am 2.0 % H 0-0 Monocytes # (Auto) December 03, 2013 4:59am 0.9 T/MM3 H 0-0.8 Monocytes # (Manual) November 29, 2013 4:49am 1.3 T/MM3 H 0-0.8 Monocytes % (Manual) November 29, 2013 4:49am 10.0 % H 0-9.0 Monocytes (%) (Auto) December 03, 2013 4:59am 12.2 % H 0-9.0 Myelocytes # January 08, 2012 5:30am 0.3 T/MM3 - Myelocytes % January 08, 2012 5:30am 2.0 % H 0-0 Neutrophils # (Auto) December 03, 2013 4:59am 3.4 T/MM3 N 1.8-7.7 Neutrophils # (Manual) November 29, 2013 4:49am 8.4 T/MM3 H 1.8-7.7 Neutrophils % (Manual) November 29, 2013 4:49am 66.0 % N 33-66 Neutrophils (%) (Auto) December 03, 2013 4:59am 44.9 % N 33-66 Percent Iron Saturation November 26, 2013 4:15am 15 % N 9-55 COMMENT On blood in labCOMMENT on blood in lab Phosphorus Level January 01, 2012 5:50am 2.5 MG/DL N 2.5-4.5 Platelet Count December 03, 2013 4:59am 443 T/MM3 H 130-400 Potassium Level December 03, 2013 4:59am 3.2 MEQ/L L 3.6-5 Prealbumin November 26, 2013 4:12pm 7.3 [...] shock highly indicated. RDW Standard Deviation December 03, 2013 4:59am 59.8 FL H 36.9-50.2 Random Vancomycin Level January 24, 2012 1:55pm 23.30 UG/ML N 0-40 Reactive Lymphocytes # November 29, 2013 4:49am 0.6 T/MM3 H 0-0 Reactive Lymphocytes % November 29, 2013 4:49am 5.0 % H 0-0 Red Blood Count December 03, 2013 4:59am 2.94 M/MM3 L 4.00-5.20 Sodium Level December 03, 2013 4:59am 139 MEQ/L N 134-144 Thyroid Stimulating Hormone (TSH) November 26, 2013 4:12pm 15.80 MIU/L H 0.47-4.68 COMMENT may use blood in lab Total Bilirubin November 30, 2013 5:42am 0.20 MG/DL N 0.20-1.30 Total Iron Binding Capacity November 26, 2013 4:15am 181 UG/DL L 261- 497 COMMENT On blood in labCOMMENT on blood in lab Total Protein November 30, 2013 5:42am 4.7 G/DL L 6.3-8.2 Turbidity December 03, 2013 4:59am < 20 0-20 Unconjugated Bilirubin January 15, [...] Has specimen been collected/obtained? Y Urine Specific [place] November 26, 2013 8:43pm 1.010 L - [...] blood in lab White Blood Count December 03, 2013 4:59am 7.6 T/MM3 N 4.5-11.0 Blood Culture Blood January 15, 2012 1:10am NO GROWTH AFTER 5 DAYS Gram Stain Drainage-Surgical Wound November 26, 2013 3:47pm Gram Stain Rectum December 18, 2011 12:50pm Gram Stain Sputum-Induced Sputum November 03, 2009 9:15am Gram Stain Abscess November 27, 2013 11:11am Urine Culture Urine, Voided-Not Cc-Midstream November 26, 2013 9:02pm [employer] Name: STEPHANIE MOLINA Unit #: [id number] : 1955 Sex: F Loc / Svc: MED DOS: 11/26/13 Signed Report #: [id number] DIAGNOSTIC IMAGING REPORT TYPE OF EXAM: CHEST [...] above. . Procedures Procedure Status Date Provider(s) Wound debridement completed 11/27/13 MARISSA JENKINS MD, FACS, CWS Encounters Encounter Location Date/Time Discharged Inpatient [facility] 11/26/13 5:45pm Recent Diagnosis Abdominal pain Abdominal fluid collection Wound dehiscence Hypothyroid History of Clostridium difficile colitis History of MRSA infection Anemia Seroma, postoperative History of intravenous drug use in remission Hepatitis C carrier Dehydration Abdominal pain Hypertension Protein calorie malnutrition Obesity (BMI 30-39.9) Dyslipidemia GERD (gastroesophageal reflux disease) Stage III chronic kidney disease Depression Overactive bladder Allergic rhinitis Abdominal abscess
[2016-07-06 22:20] VITALS: Ht 166.4 cm; Wt 99.3 kg
--- OUTSIDE RECORDS SUMMARY | 2016-07-06 23:23 | XMS REPORT | Continuity of Care Document ---
Author Author [facility] Organization [facility] Address Unknown Phone Unavailable Care Team Providers Care Cemetery Worker Name Role Phone RUEL PEREZ MD Primary Care Physician [phone] Insurance Providers Payer Name Policy Number Subscriber Name Relationship [facility] [id number] Stephanie Molina 20 Self Advance Directives Directive [...] 3. If the office is closed, call [facility] at [phone] and have your Surgeon paged. Condition at time of discharge: Good Plan of Care Discharge Date 12/03/13 2:35pm Disposition 02 TO [facility] Condition at Discharge Stable Instructions/Education [...] F (96.8 - 99.1) Temperature (Calculated Celsius) 36.99898 degrees C (36.0 - 37.3) Temperature Source [...] November 28, 2013 12:36pm BLOOD BANK DOCUMENTATION [id number] - Lipase November 26, 2013 4:12pm 55 [...] Has specimen been collected/obtained? Y Urine Specific [place] November 26, 2013 8:43pm 1.010 L - [...] [employer] Name: STEPHANIE MOLINA Unit #: [id number] : 1955 Sex: F Loc / Svc: MED DOS: 11/26/13 Signed Report #: [id number] DIAGNOSTIC IMAGING REPORT TYPE OF EXAM: CHEST [...] FACS, CWS Encounters Encounter Location Date/Time Registered [facility] 12/20/13 1:17pm Registered [facility] 12/17/13 8:35am Registered Clinic [facility] 12/15/13 1:42pm Registered [facility] 12/13/13 9:30am Discharged Inpatient [facility] 11/26/13 5:45pm
--- OUTSIDE RECORDS SUMMARY | 2016-07-06 23:23 | XMS REPORT | Continuity of Care Document ---
Author Author [facility] Organization [facility] Address Unknown Phone Unavailable Allergies Medications Problems Procedures Results Encounters ACCT No. Visit Date/Time Discharge Status Pt. Type Provider Facility Loc./Unit Complaint [id number] 01/18/2013 15:11:00 01/18/2013 23 :59:59 CLS Outpatient
--- OUTSIDE RECORDS SUMMARY | 2016-07-06 23:25 | XMS REPORT | Continuity of Care Document ---
Author Author [facility] Organization [facility] Address Unknown Phone Unavailable Care Team Providers Care Label Rewinder Name Role Phone RUEL EPREZ MD Primary Care Physician [phone] Insurance Providers Payer Name Policy Number Subscriber Name Relationship [facility] [address] [facility] [id number] Stephanie Molina 20 Self Advance Directives Directive [...] Jenkins in wound clinic when dismissed from [facility]. Patient Instructions: n/a Wound/Incision Care: Wound Vac per [facility] Durable Medical Equipment: n/a Notify Physician If: [...] of your legs. 3.During office hours, call [phone] 4. After hours, please call [facility] at [phone], and have the production broaching machine operator page your Surgeon IN THE EVENT OF AN EMERGENCY, seek medical care at the nearest Emergency Room Condition at time of discharge: Good Plan of Care Discharge Date 12/03/13 2:35pm Disposition 91 [id number] READM Instructions/Education Provided DI for Wound Infection [...] F (96.8 - 99.1) Temperature (Calculated Celsius) 36.54532 degrees C (36.0 - 37.3) Temperature Source [...] Has specimen been collected/obtained? Y Urine Specific [place] November 26, 2013 8:43pm 1.010 L - [...] [employer] Name: STEPHANIE MOLINA Unit #: [id number] : 1955 Sex: F Loc / Svc: MED DOS: 11/26/13 Signed Report #: [id number] DIAGNOSTIC IMAGING REPORT TYPE OF EXAM: CHEST [...] CWS Encounters Encounter Location Date/Time Discharged Inpatient [facility] 11/26/13 5:45pm Recent Diagnosis Abdominal pain [...]
[2016-07-06] MEDS ORDERED: HYDROMORPHONE 2mg/ml INJECTION IM ONE (23:30)
[2016-07-06] MEDS ORDERED: ONDANSETRON 4mg/2ml INJECTION IM ONE (23:30)
--- NOTE | 2016-07-06 23:31 | ERPDOC ---
Departure Disposition Decision Date: Jul 06, 2016 Disposition Decision Time: 23:40 Disposition: 01 DISCHARGED HOME, SELF-CARE Impression Impression: 1) HEADACHE CONSISTENT WITH MIGRAINE 2) HYPERTENSION Impression: Primary Impression: Migraine headache Qualified Codes: G43.C0 - Periodic headache syndromes in child or adult, not intractable Additional Impression: Hypertension Qualified Codes: I10 - Essential (primary) hypertension Condition: Improved Seen By: Physician only Referrals: RUEL PEREZ MD (PCP) PIPPA FOWLER DO (Family) 1 Week Patient Instructions: Migraine Headache (ED) Problems/Meds/Labs Reviewed?: Yes Medications reviewed and manag: Yes Additional Instructions: 1) REST TONIGHT 2) CONTINUE HOME MEDICATIONS DIRECTED 3) FOLLOW UP WITH DR. FOWLER IN NEXT 3-6 DAYS FOR RE-EVALUATION Follow up care ordered?: Yes Mental Status: Alert, Oriented HPI - Headache General Chief Complaint: Headache Stated Complaint: MIGRAINE Time Seen by Provider: 23:05 Source: patient HPI - Headache Initial Comments 61 YO WF who presents to ER for headache consistent with migraine. Patient reports onset of headache this morning. She has been taking Zofran for the nausea, but reports she is still vomiting. No known fever or chills. This headache is similar to previous migraine headaches. She has pain across her forehead. She denies any unilateral numbness or weakness. Occurred At: home Pain Scale: Now & Worst: 9/10 Severity/Quality: severe, throbbing 1 - Pain across forehead Modifying Factors: No: exposure to light Associated Symptoms: nausea/vomiting, DENIES: fever/chills, loss of consciousness, seizures, stiff neck Hx of Similar Symptoms: Yes (with migraine headaches in the past) Allergies: Coded Allergies: adhesive tape (Verified Allergy, Mild, RASH, 07/06/16) Penicillins (Verified Allergy, Unknown, NAUSEA, 07/06/16) Spasms aspirin (Verified Allergy, Unknown, 07/06/16) milk (Verified Allergy, Unknown, 07/06/16) sulfamethoxazole (Verified Allergy, Unknown, 07/06/16) trimethoprim (Verified Allergy, Unknown, 07/06/16) Past History Patient Surgical History Multiple surgeries for rectal prolapse D&C Hysterectomy Cystoscopy with stent Past Medical History Metabolic: cancer, hypertension, hypothyroidism ENMT: allergies, cataracts (right), dental problems Respiratory: asthma GI: GERD, IBS, constipation, other (rectal prolapse), ulcers Female: UTI, renal insufficiency Neurological: fibromyalgia Musculoskeletal: osteoarthritis, rheumatoid arthritis Integumentary: other Hematologic: other (rheumatic fever) Infectious: hepatitis C Psychological: depression, drug abuse (history of IV DU and marijuana use) Surgical History General: appendix, colonoscopy, hernia, other (rectal prolapse repair), tonsils Reproductive/: D&C, hysterectomy Family History Family PMH: FOUND: hypertension Vaccines Hx Influenza Vaccination: Yes (FALL 2013) Hx Pneumococcal Vaccination: Yes (2009) Social History Smoking Status: Former smoker Does patient use chewing tobac: No Substance Use Type: does not use Sexuality: male partner Review of Systems Constitutional Constitutional: fatigue, DENIES: chills, fever, syncope Eyes General: photophobia, DENIES: erythema, exudate Vision: other (halos related to cataract) ENMT Mouth/Throat: DENIES: change in swallowing, painful swallowing, sore throat Teeth: missing teeth Cardiovascular Cardiac: DENIES: chest pain, dyspnea on exertion, paroxysmal nocturnal dysp Rhythm/Rate: DENIES: irregular beat, palpitations Pulmonary Respiratory: DENIES: cough, dyspnea, pleuritic chest pain GI Upper Abdomen: nausea, see HPI, vomiting, DENIES: hematemesis, pain Lower Abdomen: DENIES: blood in stool, constipation, diarrhea, pain General: DENIES: dysuria, hematuria Integumentary Skin: DENIES: rash Neurological General: headache, see HPI, DENIES: seizures, syncope Physical Exam General General Nourishment: no acute distress, adult, obese Vitals and Pain First Documented Vital Signs Date Time Temp Pulse Resp B/P Pulse Ox O2 Delivery O2 Flow Rate FiO2 07/06/16 22:20 99.2 93 18 185/107 96 Room Air Weight: Kilograms: 99.300 Height (feet): 5 Height (inches): 5.50 Triage Pain Scale: Eyes (brief) Eyes Brief: found: EOMI, PERRL, not found: scleral icterus ENMT (brief) ENMT Brief: FOUND: TM clear, TM good light reflex, ear canals clear, mucosa moist, NOT FOUND: nasal exudate, pharnyx erythema, tonsillar deviation Comments edentulous Neck (brief) Neck: FOUND: trachea midline, NOT FOUND: adenopathy, carotid bruits, nuchal rigidity, thyromegaly Respiratory (brief) Respiratory: FOUND: clear all rivera, equal bilaterally, NOT FOUND: rales, wheezes Cardiovascular (brief) Cardiac: FOUND: regular rate, regular rhythm, NOT FOUND: pedal edema Capillary Refill: <2 sec Pulses: all distal extremities, equal, strong Abdomen (brief) Abdominal Brief: FOUND: bowel normo active x4, soft, NOT FOUND: distended, hepatosplenomegaly, tender Integumentary (brief) Integumentary Brief: FOUND: dry, warm, NOT FOUND: rash Neurologic Mental Status: FOUND: alert, oriented, NOT FOUND: confused, lethargic GCS Adult : GCS Eye Opening: (4)Spontaneous GCS Verbal: (5)Oriented GCS Motor: (6)Obeys Commands GCS Total: 15 Cranial Nerves: FOUND: extraocular movements (grossly intact bilaterally), forehead movement (intact bilaterally), shoulder shrug (grossly intact bilaterally), NOT FOUND: facial asymmetry Motor : Motor Side: bilateral Motor Location: biceps, triceps, wrist, quadriceps, hamstring, foot extension, foot flexion, geosciences professor strength Motor Degree: 5 Unusual Movements: NOT FOUND: chorea, extrapyramidal symptoms, psycho-motor retardataion, tremor Sensation: FOUND: position sense intact, sharp intact, soft touch intact x4 ext DTR's : DTR Side: bilateral DTR Location: Forearm, Patellar DTR Grade: 2+ Psychiatric (brief) Psychiatric Brief: FOUND: alert, attentive, normal affect, oriented Differential Diagnoses Considering: Carbon Monoxide Toxicity, Cerebral Hemorrhage, Headache, Headache - Migraine, Headache - Tension/Muscle, Sinusitis - Sphenoid, Sinusitis - Maxillary, Sinusitis - Frontal, Sub-arachnoid Hemorrhage Progress Results/Orders Orders Procedure Category Date Status Time Hydromorphone PHA 07/06/16 Complete (Dilaudid) 23:30 Ondansetron Inj PHA 07/06/16 Complete (Zofran) 23:30 Medications Current ED Medications Hydromorphone HCl (Dilaudid) 0.5 mg O ONCE IM Last administered on 07/06/16 23:38; Start 07/06/16 at 23:30; Stop 07/06/16 at 23:31; Status DC Ondansetron HCl (Zofran) 4 mg O ONCE IM Last administered on 07/06/16 23:38; Start 07/06/16 at 23:30; Stop 07/06/16 at 23:31; Status DC Progress Progress Patient has not taken BP meds today due to nausea associated with headache. Repeat BP 176/104 mm Hg. Patient states she will go home and take her blood pressure medications. She reports headache and nausea are resolved. MINDY DIEGO MD Jul 06, 2016 23:31
--- NOTE | 2016-07-06 23:38 | NUR ---
MEDS IM DILAUDID AND IM ZOFRAN GIVEN TO PT ENIO INJECTIONS WELL
--- NOTE | 2016-07-07 00:26 | NUR ---
REST PT RESTING QUIETLY ON CART WITH EYES CLOSED AROUSES EASILY TO VERBAL STIMULI PT REPORTS HER NAUSEA IS GONE RATES HEADACHE PAIN 2/10
--- NOTE | 2016-07-07 00:28 | NUR ---
B/P DR CASTAÑEDA NOTIFIED OF PT B/P PT REPORTS SHE HAS NOT TAKEN HER METOPROLOL OR LISINOPREL SINCE FRIDAY BECAUSE OF VOMITING. OKAY TO DISMISS PT IF SHE WILL TAKE HER B/P MEDS WHEN SHE GETS HOME BEFORE SHE GOES TO BED
--- NOTE | 2016-07-07 00:32 | NUR ---
INSTRUCTIONS DISMISSAL INSTRUCTIONS GIVEN TO PT PT STATES SHE WILL TAKE HER MEDICATION FOR HER B/P TONIGHT BEFORE SHE CRAWLS INTO BED ALSO REPORTS SHE WILL FOLLOW-UP WITH DR PUGA THIS WEEK
[2016-07-07 00:34] VITALS: BP 175/106; PULSE 89; RESP 18; TEMP 99.2; O2SAT 96
--- NOTE | 2016-07-07 00:34 | NUR ---
DISMISS PT DISMISSED AMBULATORY WITH FRIEND
== END 2016-07-07 00:34 | disposition home or self-care (01) ==
LOC: ED 21:57
DX: G43.C0 Periodic headache syndromes in child or adult, not intractable (principal); I10 Essential (primary) hypertension; Z87.891 Personal history of nicotine dependence
CPT/HCPCS: 96372; 99283; J1170; J2405

== ENCOUNTER 2016-08-21 07:51 | Inpatient (IN) ==
[2016-08-22] MEDS ORDERED: SALINE FLUSH 10ml SYRINGE IVF PRN (05:00)
[2016-08-22] MEDS ORDERED: FLUTICASONE NASAL SPRAY 50mcg EA NOSTRIL PRN (05:00)
[2016-08-22] MEDS ORDERED: ELETRIPTAN 40 MG PO PRN (05:00)
[2016-08-22] MEDS ORDERED: ONDANSETRON 4 MG/2 ML INJECTION IVP PRN (05:00)
[2016-08-22] MEDS ORDERED: CLOBETASOL 0.05% CREAM 15gm TOP PRN (05:00)
[2016-08-22] MEDS ORDERED: 1/2 NS with KCL 20mEq 1,000 ML IV SCH (07:00)
[2016-08-22] MEDS: OMEPRAZOLE 20 MG CAPSULE PO SCH (07:50)
[2016-08-22] MEDS: LEVOTHYROXINE 175 MCG TABLET PO SCH (07:50)
[2016-08-22] MEDS: CIPROFLOXACIN PREMIX 400 MG/200 ML BAG IV SCH ×2 (08:44→21:58)
[2016-08-22] MEDS ORDERED: LISINOPRIL/HCTZ 20/12.5 MG TABLET PO SCH (09:00)
--- NOTE | 2016-08-22 12:05 | Progress Note ---
Subjective: Pt doing much better this am, reports her n/v is improved. Denies any cp, sob, f /c. Objective Vital signs: Temp Pulse Resp BP Pulse Ox 97.1 F 64 18 135/92 H 93 08/22/16 07:26 08/22/16 07:26 08/22/16 07:26 08/22/16 07:26 08/22/16 07:26 Weight: 96.5 kg - Constitutional Present: no acute distress, well nourished - Routine HEENT Exam Head: Present: normocephalic, atraumatic Eye: Present: EOMI. Absent: conjunctivae pink ENT: Present: mucous membranes moist - Routine Respiratory Exam Present: CTA bilaterally. Absent: rales, wheezes - Routine Cardiovascular Exam Present: RRR, no murmur - Routine Abdominal Exam Present: soft, non distended. Absent: tenderness - Routine Extremities Exam Present: edema. Absent: cyanosis, clubbing - Routine Skin Exam Present: intact, dry - Routine Neurological Exam Present: alert, oriented X3 Results - Labs CBC & Chem 7: 08/22/16 04:24 08/22/16 04:24 Labs: Short CBC 08/22/16 Range/Units 04:24 WBC 8.4 (4.5-11.0) T/MM3 Hgb 11.1 L (12-16) GM/DL Hct 35.3 L (36-46) % Plt Count 194 (130-400) T/MM3 [facility] 08/22/16 04:24 Sodium 141 Potassium 3.5 L Chloride 106 Carbon Dioxide 24 BUN 21.0 H Creatinine 1.3 H Glucose 129 H Calcium 8.8 Assessment and Plan (1) CKD (chronic kidney disease) Current visit: Yes Status: Chronic (2) Pyelonephritis due to Escherichia coli Current visit: Yes Status: Acute (3) HTN (hypertension) Current visit: Yes Status: Chronic (4) Hematuria Current visit: Yes Status: Acute Assessment and Plan: Severe Sepsis 2/2 Pyelo -Sepsis resolved, LA improved, n/v improved -Blood cx's NGTD, urine cx shows E. coli, awaiting sensitivities -Cont. Cipro Hematuria -Possibly 2/2 peylo vs. obstruction -Renal sono shows right sided moderate hydronephrosis, unclear if acute vs. chronic -No pain so stone less likely, will do CTU HTN Urgency -Possibly 2/2 non-compliance vs. obstruction -Resolved -Currently on lisinopril/hctz and lopressor -Needs increased lisinopril dosing d/t protienuria CKD -Cr stable at 1.3 Ppx -DVT-SCD and ambulation Sepsis Assessment - Evaluation Sepsis screening result: No Definite Risk - Focused Exam Vital Signs Temp Pulse Resp BP Pulse Ox 08/22/16 07:26 97.1 F 64 18 135/92 H 93 Hospital Course Summary Disclaimer: The visit summary below is not to be considered part of the above Progress Note. Hospital Course: 08/22/16 12:05 Continue with Cipro BID for treatment of pyelonephritis, Blood cultures NGTD, urine cx shows e. coli, will await urine cx's and then switch abx Renal US shows right moderate hydronephrosis, unclear if chronic or acute but pt does have hematuria, will get CTU
[2016-08-22] MEDS ORDERED: NS 500 ML IV ONE (16:13)
[2016-08-22] MEDS ORDERED: NS 100 ML ONE (16:52)
[2016-08-22] MEDS ORDERED: SALINE FLUSH 10ml SYRINGE ONE (16:52)
[2016-08-22] MEDS ORDERED: IOHEXOL 300mg/ml 100ml INJECTION ONE (16:52)
[2016-08-22] MEDS: ACETAMINOPHEN 325 MG TABLET PO PRN ×2 (17:19→21:56)
[2016-08-22] MEDS ORDERED: AMITRIPTYLINE 25 MG TABLET PO SCH (22:00)
[2016-08-23] MEDS: LEVOTHYROXINE 175 MCG TABLET PO SCH (06:00)
[2016-08-23] MEDS: OMEPRAZOLE 20 MG CAPSULE PO SCH (06:00)
[2016-08-23] MEDS: ACETAMINOPHEN 325 MG TABLET PO PRN ×2 (06:54→12:10)
--- NOTE | 2016-08-23 08:05 | CT Scan Report ---
Indication: HYDRONEPHROSIS RIGHT KIDNEY PROCEDURE: CT renal wo/w con: Encounter: Initial Comparison: None Technique: Axial CT images were performed through the abdomen and pelvis before and after the administration of intravenous contrast. Delayed postcontrast images were also performed. Coronal and sagittal 2-dimensional reformats. Automated Exposure Control and Iterative Reconstruction dose reducing techniques were utilized. Contrast: Omnipaque 300 100 mL Findings: The lung bases are clear. The unenhanced images show gallstones but no definite renal stones. No ureteral stones. Postcontrast images show normal enhancement of the liver. The spleen, pancreas and adrenal glands are within normal limits. Atrophic lobulated left kidney. Right kidney shows normal cortical enhancement with mild hydronephrosis. Pelvic phleboliths are present. Bladder appears normal. Uterus is surgically absent. There appears to be a small rectocele present with pelvic floor prolapse. No evidence of bowel obstruction. Bone windows show degenerative change in the spine. Delayed postcontrast imaging shows normal excretion of contrast by both renal collecting systems without filling defect or mass. There is mild right hydronephrosis. The partially opacified urinary bladder grossly normal. Impression: Mild right hydronephrosis and hydroureter without clear cause of obstruction. There is a preliminary report by [facility]. .
[2016-08-23] MEDS: CIPROFLOXACIN PREMIX 400 MG/200 ML BAG IV SCH (08:27)
[2016-08-23] MEDS ORDERED: DiphenhydrAMINE 25 MG CAPSULE PO ONE (09:26)
[2016-08-23] MEDS ORDERED: CIPROFLOXACIN 500 MG TABLET PO SCH (10:15)
--- NOTE | 2016-08-23 11:29 | Discharge Summary ---
Discharge Information Date of admission: 08/21/16 08:48 <Nick Landon - 08/23/16 13:14> 08/21/16 08:48 <Danna Pastrana V - 08/23/16 11:39> Anticipated date of discharge: 08/23/16 <Danna Pastrana V - 08/23/16 11:39> Attending Physician: Nick Landon MD <Nick Landon - 08/23/16 13:14> Nick Landon MD <Danna Pastrana V - 08/23/16 11:39> Primary care physician: Florentino Bahena DO <Nick Landon - 08/23/16 13:14> Florentino Bahena DO <Danna Pastrana V - 08/23/16 11:39> - Discharge Diagnosis (1) CKD (chronic kidney disease) Status: Chronic (2) Pyelonephritis due to Escherichia coli Status: Resolved (3) HTN (hypertension) Status: Chronic (4) Hematuria Status: Acute <Danna Pastrana V - 08/23/16 11:23> (1) CKD (chronic kidney disease) Status: Chronic (2) Pyelonephritis due to Escherichia coli Status: Resolved (3) HTN (hypertension) Status: Chronic (4) Hematuria Status: Acute <Nick Landon - 08/23/16 13:14> - Laboratory Labs: 08/23/16 04:56 08/23/16 04:56 <Nick Landon - 08/23/16 13:14> 08/23/16 04:56 08/23/16 04:56 <Danna Pastrana V - 08/23/16 11:39> - Microbiology None <Danna Pastrana V - 08/23/16 11:39> - Radiology Radiology: 08/22/16-renal sonogram- Mild right hydronephrosis and hydroureter without clear cause of obstruction. <Danna Pastrana V - 08/23/16 11:39> History of Present Illness HPI: 08/23/16 11:32 Patient is a 61 yr old female whom has not been feeling well for the past 3 days. She reports Friday she began having vomiting and diarrhea. She has not been able to keep down home medications. Early this morning she awoke and felt that she needed to be evaluated. Her roomates called EMS and she was brought to the emergency room for further evaluation and treatment. On arrival to the ER Her blood pressure was found to be elevated at 189/114. Laboratory studies did reveal presence of urinary tract infection, 2+ protein, 1+ ketones, 3+ blood, positive nitrates, 3+ leukocyte esterase, 50-200 RBCs with 50-200 WBCs with 4+ bacteria. The WBC count was found to be elevated at 13.2, hemoglobin 13.7, hematocrit 42.8, platelet count 283. Sodium is elevated at 148, potassium 3.2, BUN 23, creatinine 1.3, glucose 158. Troponin was negative. Venous lactate was found to be elevated at 2.3, pro calcitonin less than 0.05. Due to the severity of her headache. A CT scan of the head was obtained showing no acute intracranial abnormalities. Chest x-ray showed no acute cardiopulmonary findings. She was started on IV fluids and given labetalol 20 milligrams IV 2 for blood pressure control. Zofran was given for nausea and Dilaudid for pain. She was started on Cipro IV for antimicrobial coverage. Given the severity of her symptoms as well as acute UTI with sepsis. The hospitalist services were contacted and accepted patient for inpatient admission for further evaluation and treatment. She was seen initially on admission. He is alert, oriented and pleasant. She reports having a long-standing history of nausea for several years. She reports that the nausea and acute vomiting has gotten significantly worse over the past 3 days. She also suffers from chronic migraine headaches and usually has 2-3 episodes per month. Due to her increased vomiting and loose stools and availability to keep the medication. She was concern for dehydration, thus presenting to the emergency room today. Did review advanced active and patient does wish to be a do not resuscitate <Danna Pastrana Kris - 08/23/16 11:39> Hospital Course Hospital course: Pt doing well and will plan on 10 day total abx therapy for complicated pyelonephritis. Pt has mild to moderate hydronephrosis and hydroureter on right side without a clear etiology. Pt is clinically stable and so case was discussed with and he recommended f/u as outpatient with him on 09/04 with an US done a couple of days done before that. Pt also had HTN urgency on admission and so pt was switched to a combination pill of lisinopril/hctz form her home med of only lisinopril. Her lisinopril dose was increased d/t her BPs and her protienuria. Her Cr increased slightly from 1.3(likely her baseline) to 1.5 which is expected noting the lisinopril increase. Her lisinopril was held when she got CT with contrast and she was instructed to resume it the day after hospital discharge. Pt will need a renal panel to assess kidney function early next week with pcp. <Nick Landon B - 08/23/16 13:14> 08/22/16 12:05 Continue with Cipro BID for treatment of pyelonephritis, Blood cultures NGTD, urine cx shows e. coli, will await urine cx's and then switch abx Renal US shows right moderate hydronephrosis, unclear if chronic or acute but pt does have hematuria, will get CTU 08/23/16- She has been doing well with minimal discomfort. Will continue with 7 more days of PO Cipro for antimicrobial coverage. Blood pressure has been well controlled. She will continue on increased dose of lisinopril. Will need to resume this tomorrow 08/24/16 as it has been on hold due to no contrast. Like patient to follow with primary care provider, Dr. Bahena early next week. Recommend checking a renal panel at that time. Will arrange outpatient urologic follow up for hydronephrosis. Case discussed with attending, Dr. Landon This is a brief synopsis this patient's hospitalization. For complete and detailed review see individual progress notes that document. Will discharge time greater than 35 minutes <Danna Pastrana V - 08/23/16 11:39> DVT Prophylaxis: SCD's <Danna Pastrana V - 08/23/16 11:39> Discharge Plan - Med Rec/Dispo Referrals/Follow Up: Guevara Salazar [Other] (Will need to call his office in [place] today. Please schedule follow-up appointment for September 04 at his [place] office. He is aware of these arrangements. ) Florentino Bahena DO [Primary Care Provider] - 1 Week (Please schedule follow-up appointment with for next week. Patient will need a renal panel at that time.) <Nick Landon - 08/23/16 13:14> Prescriptions: New Lisinopril/Hctz 20/12.5 [Prinzide 20/12.5] 1 tab PO DAILY #30 Ciprofloxacin [Cipro] 500 mg PO Q12HR #14 Continue Omeprazole 40 mg PO DAILY #0 Levothyroxine Sodium 175 mcg PO DAILY #0 Acetaminophen 1,000 mg PO Q8H PRN #0 PRN Reason: PAIN Eletriptan HBr [Relpax] 40 mg PO BID PRN #0 PRN Reason: MIGRAINE HEADACHE Fluticasone Propionate [Flonase Allergy Relief] 1 spray MEGHANN DAILY PRN #0 PRN Reason: PRN ORDERS Clobetasol Propionate/Emoll [Clobetasol Emollient 0.05% Crm] 1 applic TOP PRN #0 Loratadine [Claritin] 10 mg PO DAILY #0 Scopolamine [Transderm-Scop] 1 patch TOP Q3DAY #0 Ondansetron [Ondansetron Odt] 4 mg PO TID PRN #0 PRN Reason: NAUSEA &/OR VOMITING Amitriptyline HCl 25 mg PO HS #0 Metoprolol Tartrate 25 mg PO BID #0 Tizanidine HCl 4 mg PO HS #0 Discontinued Meloxicam 15 mg PO DAILY #0 tab No Action Lisinopril 10 mg PO DAILY #0 <Nick Landon - 08/23/16 13:14> - Disposition 01 Discharged Home, Self-Care <Nick Landon - 08/23/16 13:14>
--- NOTE | 2016-08-23 11:51 | Discharge Summary ---
Discharge Plan - Med Rec/Dispo Referrals/Follow Up: Florentino Bahena DO [Primary Care Provider] - 1 Week (Please schedule follow-up appointment with for next week. Patient will need a renal panel at that time.) Guevara Salazar [Other] (Will need to call his office in [place] today. Please schedule follow-up appointment for September 04 at his [place] office. He is aware of these arrangements. ) Prescriptions: New Lisinopril/Hctz 20.5 [Prinzide 20/12.5] 1 tab PO DAILY #30 Ciprofloxacin [Cipro] 500 mg PO Q12HR #14 Continue Omeprazole 40 mg PO DAILY #0 Levothyroxine Sodium 175 mcg PO DAILY #0 Acetaminophen 1,000 mg PO Q8H PRN #0 PRN Reason: PAIN Eletriptan HBr [Relpax] 40 mg PO BID PRN #0 PRN Reason: MIGRAINE HEADACHE Fluticasone Propionate [Flonase Allergy Relief] 1 spray MEGHANN DAILY PRN #0 PRN Reason: PRN ORDERS Clobetasol Propionate/Emoll [Clobetasol Emollient 0.05% Crm] 1 applic TOP PRN #0 Loratadine [Claritin] 10 mg PO DAILY #0 Scopolamine [Transderm-Scop] 1 patch TOP Q3DAY #0 Ondansetron [Ondansetron Odt] 4 mg PO TID PRN #0 PRN Reason: NAUSEA &/OR VOMITING Amitriptyline HCl 25 mg PO HS #0 Metoprolol Tartrate 25 mg PO BID #0 Tizanidine HCl 4 mg PO HS #0 Discontinued Meloxicam 15 mg PO DAILY #0 tab No Action Lisinopril 10 mg PO DAILY #0 - Disposition 01 Discharged Home, Self-Care
[2016-08-23] MEDS ORDERED: HYDROCODONE/APAP 7.5 MG/325 MG TABLET PO ONE (12:40)
[2016-08-24] MEDS ORDERED: SCOPOLAMINE PATCH REMOVAL TD SCH (08:45)
[2016-08-24] MEDS ORDERED: SCOPOLAMINE 1.5 MG PATCH TD SCH (08:45)
== END 2016-08-23 15:30 | disposition home or self-care (01) | DRG 872 ==
LOC: MED 08:48
PROVIDERS: ADMIT Internal Medicine; ATTEND Internal Medicine